=== PATIENT | male | born 1990 | race Caucasian/White ===

== ENCOUNTER 2017-03-12 17:47 | Emergency (ER) | payer MEDICAID ==
[2017-03-12 18:00] VITALS: BP 133/84; PULSE 88; RESP 16; TEMP 98.6; O2SAT 98
--- NOTE | 2017-03-12 18:24 | EDPHY ---
H & P Stated Complaint: lesion l arm for 6 months wants checked out HPI/ROS: CHIEF COMPLAINT: Arm growth HISTORY OF PRESENT ILLNESS: Patient complains of "growth" on right arm. It is on the posterior aspect of the right forearm. Is been present for 6 months. At 1st it looks like an ingrown hair to him. It has slowly changed to a larger cyst type structure. Does have some blue discoloration to it. It does bleed when he scratches it or scrapes on something. It is not painful. It does not itch. There is no surrounding redness. No swelling of the arm. No travel or surgery. No history of venous thrombolic event or bleeding disorders. No history of AV malformations. He has not yet been evaluated for this. No modifying factors. No other associated complaints. REVIEW OF SYSTEMS: Ten systems reviewed and are negative unless otherwise noted in the HPI PAST MEDICAL HISTORY: Denies any medical history SOCIAL HISTORY: Nonsmoker FAMILY HISTORY: Noncontributory EXAMINATION General Appearance: Alert, no distress Head: normocephalic, atraumatic Eyes: Pupils equal and round, no conjunctival pallor or injection Cardiovascular: Regular rate and rhythm. Pulses intact distally symmetrically in the radial and DP pulses. Neurological: A&O, nonfocal, normal gait. Sensory intact in the upper extremities. Skin: Warm and dry, no rash. There is a cystic type structure in the right dorsal lateral forearm. It is approximately 1.5 cm in diameter. There is some blue discoloration to it. There is an excoriation along the central line of this longitudinally. No bleeding. No purulence. No fluctuance. No surrounding erythema. No evidence of DVT Extremities: Nontender, no pedal edema. Cyst type structure as listed above. Range of motion is intact and symmetric in the upper extremities. Psychiatric: Mood and affect normal DIFFERENTIAL DIAGNOSES: Including but not limited to sebaceous cyst, dermoid cyst, inclusion cysts, av malformation, hematoma, blood blister MDM: 6:22 p.m. Malformation on the right forearm that appears to be complex in nature. Has been present for 6 months. Possibly cystic, possibly AV malformation. There is no evidence of DVT in the arm. Radial pulses symmetric at 2+. Suspect that this is a superficial malformation of the vascular structure. I will discharge the patient home without any intervention here. I recommend that he follow up with general surgeon for consultation evaluation. He is comfortable this plan and discharged home stable condition. SUPERVISION: This patient was independently evaluated without direct examination by the attending physician. Case was discussed with attending physician. Source: Patient Exam Limitations: No limitations - Personal History Current Tetanus/Diphtheria Vaccine: Yes - Medical/Surgical History Hx Asthma: No Hx Chronic Respiratory Disease: No Hx Diabetes: No Hx Cardiac Disease: No Hx Renal Disease: No Hx Cirrhosis: No Hx Alcoholism: No Hx HIV/AIDS: No Hx Splenectomy or Spleen Trauma: No Other PMH: ortho surg - Social History Smoking Status: Never smoked Constitutional: Initial Vital Signs Temperature (C) 98.6 F 03/12/17 17:58 Heart Rate 88 03/12/17 17:58 Respiratory Rate 16 03/12/17 17:58 Blood Pressure 133/84 H 03/12/17 17:58 O2 Sat (%) 98 03/12/17 17:58 O2 Delivery Mode Room Air Allergies/Adverse Reactions: No Known Allergies Allergy (Unverified 03/12/17 17:58) Home Medications: Medication Instructions Recorded NK [No Known Home Meds] 03/12/17 Departure - Departure Disposition: Home, Routine, Self-Care Clinical Impression: Cyst, dermoid, arm Qualifiers: Laterality: right Qualified Code(s): D23.61 - Other benign neoplasm of skin of right upper limb, including shoulder Condition: Good Instructions: Cyst (ED) Additional Instructions: 1. Follow up with primary care physician 2. Follow up with architectural engineer or general surgeon for consultation further care 3. Return to the emergency department for any bleeding, swelling, redness of the affected extremity Referrals: NONE *PRIMARY CARE P,. [Primary Care Provider] - As per Instructions BALAJI CASEY [Medical Doctor] - As per Instructions PATTI KAY [Medical Doctor] - As per Instructions John Tam MD [Medical Doctor] - As per Instructions
== END 2017-03-12 18:35 | disposition home or self-care (01) ==
DX: D23.61 Other benign neoplasm of skin of right upper limb, including shoulder (principal)